=== PATIENT | male | born 1950 | race Caucasian/White ===

== ENCOUNTER 2022-06-27 10:19 | Inpatient (IN) | payer MEDICARE ==
[~2022-06-27] VITALS: Ht 188 cm; Wt 95.9 kg
[2022-06-27 11:16] LABS: BASO % 0.5 % (0.0-1.0); EOS # 0.1 10^3/uL (0.0-0.5); EOS % 1.3 % (0.0-3.0); HEMATOCRIT 45.4 % (42.0-52.0); HEMOGLOBIN 14.4 g/dl (13.5-17.5); LYMPH # 1.4 10^3/uL (1.5-5.0); LYMPH % 16.2 % (24.0-44.0); MEAN CORPUSCULAR HEMOGLOBIN 27.4 pg (27.0-33.0); MEAN CORPUSCULAR HGB CONC 31.7 g/dl (32.0-36.5); MEAN CORPUSCULAR VOLUME 86.3 fl (80.0-96.0); MONO # 0.8 10^3/uL (0.0-0.8); MONO % 9.1 % (2.0-8.0); NEUTROPHILS # 6.3 10^3/uL (1.5-8.5); NEUTROPHILS % 72.4 % (36.0-66.0); PLATELET COUNT, AUTOMATED 546 10^3/uL (150-450); RED BLOOD COUNT 5.26 10^6/uL (4.30-6.10); WHITE BLOOD COUNT 8.6 10^3/uL (4.0-10.0)
[2022-06-27 11:17] LABS: INR 1.02; PROTHROMBIN TIME 13.6 SECONDS (12.5-14.5)
[2022-06-27 11:18] LABS: PARTIAL THROMBOPLASTIN TIME 26.1 SECONDS (24.8-34.2)
[2022-06-27 11:23] LABS: ERYTHROCYTE SEDIMENTATION RATE 96 mm/hr (0-20)
[2022-06-27 11:31] LABS: LIPASE 26 U/L (12-53)
[2022-06-27 11:33] LABS: ALBUMIN 2.8 G/DL (3.2-5.2); ALKALINE PHOSPHATASE 69 U/L (46-116); ALT/SGPT 14 U/L (7.0-40); AST/SGOT 18 U/L (<34); BILIRUBIN,DIRECT 0.3 MG/DL (<0.4); BILIRUBIN,TOTAL 0.8 MG/DL (0.3-1.2); BLOOD UREA NITROGEN 18 MG/DL (9-23); CALCIUM LEVEL 10.5 MG/DL (8.3-10.6); CARBON DIOXIDE LEVEL 29 MMOL/L (20-31); CHLORIDE LEVEL 102 MMOL/L (98-107); CK-MB VALUE MASS 1.2 NG/ML (<3.6); CPK CREATINE PHOSPHOKINASE 156 U/L (46-171); CREATININE FOR GFR 0.71 MG/DL (0.70-1.30); GLOMERULAR FILTRATION RATE > 60.0 (>42); GLUCOSE, FASTING 130 MG/DL (74-106); MB/CK RELATIVE INDEX 0.76 (< OR =4); POTASSIUM SERUM 4.3 MMOL/L (3.5-5.1); SODIUM LEVEL 139 MMOL/L (136-145)
[2022-06-27 11:35] LABS: FREE T4 1.12 NG/DL (0.89-1.76); THYROID STIMULATING HORMONE 1.563 uIU/ML (0.55-4.78)
[2022-06-27 11:38] LABS: RSV AMPLIFICATION NEGATIVE (NEGATIVE)
[2022-06-27] MEDS: METOPROLOL 5 MG/5 ML VIAL IV SCH ×3 (12:12→12:33)
[2022-06-27] MEDS ORDERED: METOPROLOL TART 50 MG TAB PO ONE (12:45)
[2022-06-27] MEDS ORDERED: HOME MED LIST COMPLETE! XX SCH (14:00)
[2022-06-27 14:18] LABS: CK-MB VALUE MASS 1.3 NG/ML (<3.6); MB/CK RELATIVE INDEX 0.86 (< OR =4)
[2022-06-27] MEDS ORDERED: oxyCODONE 5MG TAB PO PRN (15:50)
[2022-06-27] MEDS ORDERED: MORPHINE 2 MG/ML 1ML VIAL IV PRN (15:50)
[2022-06-27] MEDS ORDERED: LEVALBUTEROL 1.25MG 0.5ML CONCENTRATE NEB INH PRN (15:55)
[2022-06-27] MEDS: METOPROLOL TART 25 MG TABLET PO SCH ×2 (18:13→23:24)
[2022-06-27 22:45] VITALS: BP 141/75
[2022-06-27] MEDS: DOCUSATE SODIUM 100MG CAPSULE PO SCH (23:22)
[2022-06-27] MEDS: HEPARIN SOD (PORCINE) 5000UNITS/ML 1ML VIAL/SYRINGE SC SCH (23:22)
[2022-06-28] VITALS (20 sets, daily range): BP systolic 105–123; BP diastolic 63–78; O2SAT 92–96
[2022-06-28 05:12] LABS: HEMOGLOBIN 13.4 g/dl (13.5-17.5); MEAN CORPUSCULAR HEMOGLOBIN 27.5 pg (27.0-33.0); MEAN CORPUSCULAR HGB CONC 31.2 g/dl (32.0-36.5); MEAN CORPUSCULAR VOLUME 88.3 fl (80.0-96.0); PLATELET COUNT, AUTOMATED 466 10^3/uL (150-450); RED BLOOD COUNT 4.87 10^6/uL (4.30-6.10); WHITE BLOOD COUNT 8.1 10^3/uL (4.0-10.0)
[2022-06-28] MEDS: METOPROLOL TART 25 MG TABLET PO SCH (05:12)
[2022-06-28 06:40] LABS: BLOOD UREA NITROGEN 26 MG/DL (9-23); CALCIUM LEVEL 10.4 MG/DL (8.3-10.6); CARBON DIOXIDE LEVEL 34 MMOL/L (20-31); CHLORIDE LEVEL 102 MMOL/L (98-107); CREATININE FOR GFR 0.89 MG/DL (0.70-1.30); GLOMERULAR FILTRATION RATE > 60.0 (>42); GLUCOSE, FASTING 105 MG/DL (74-106); POTASSIUM SERUM 5.2 MMOL/L (3.5-5.1); SODIUM LEVEL 140 MMOL/L (136-145)
[2022-06-28] MEDS: DOCUSATE SODIUM 100MG CAPSULE PO SCH ×2 (10:30→20:28)
[2022-06-28] MEDS: HEPARIN SOD (PORCINE) 5000UNITS/ML 1ML VIAL/SYRINGE SC SCH ×2 (10:50→20:27)
[2022-06-28] MEDS: METOPROLOL TART 12.5 MG PER 1/2 TAB PO SCH ×3 (11:58→23:44)
[2022-06-28] MEDS ORDERED: TRANEXAMIC ACID 100 MG/ML 10ML VIAL As Ordered ONE (12:11)
[2022-06-28] MEDS ORDERED: PHENYLephrine 500MCG 5ML (100MCG/ML) SYRINGE As Ordered ONE (13:14)
[2022-06-28] MEDS ORDERED: propofoL 200 MG/20 ML VIAL As Ordered ONE ×2 (13:14→13:35)
[2022-06-28] MEDS ORDERED: MIDAZOLAM INJ 2MG/2ML VIAL (J2250 PER 1MG) As Ordered ONE (13:14)
[2022-06-28] MEDS ORDERED: fentaNYL 100 MCG/2 ML INJECTION As Ordered ONE (13:14)
[2022-06-28] MEDS ORDERED: ceFAZolin 2 GM/D5W 50 ML IV BAG As Ordered ONE (13:16)
[2022-06-28] MEDS ORDERED: ROPIVA 125MG/EPINEPH 0.25MG/CLONID 40MCG/KETOR 15MG IN NS 50ML SYRINGE PA ONE (14:00)
[2022-06-28] MEDS ORDERED: SENNA 8.6 MG TAB (SENOKOT) PO PRN (14:55)
[2022-06-28] MEDS ORDERED: oxyCODONE 5MG TAB PO PRN ×2 (14:55)
[2022-06-28] MEDS ORDERED: ONDANSETRON 4MG 2ML VIAL IV PRN (14:55)
[2022-06-28] MEDS ORDERED: LR 1,000 ML IV SCH (14:55)
[2022-06-28] MEDS: FERROUS SULFATE 325MG TAB PO SCH (17:37)
[2022-06-28] MEDS: ACETAMINOPHEN TAB 650MG DOSE (2X325MG) PO SCH ×2 (17:37→23:45)
[2022-06-28] MEDS: ASCORBIC ACID 500 MG TAB PO SCH (17:38)
[2022-06-28] MEDS: ASPIRIN 81MG ENTERIC TABLET PO SCH (20:28)
[2022-06-28] MEDS: ceFAZolin SOD 2 GM in IV 1 EA IV SCH (20:28)
[2022-06-28] MEDS: NAPROXEN 250 MG TAB PO SCH (20:28)
[2022-06-29] VITALS (11 sets, daily range): BP systolic 102–115; BP diastolic 60–70; O2SAT 94–96
[2022-06-29 05:34] LABS: HEMATOCRIT 40.1 % (42.0-52.0); HEMOGLOBIN 12.5 g/dl (13.5-17.5); MEAN CORPUSCULAR HEMOGLOBIN 27.8 pg (27.0-33.0); MEAN CORPUSCULAR HGB CONC 31.2 g/dl (32.0-36.5); MEAN CORPUSCULAR VOLUME 89.1 fl (80.0-96.0); PLATELET COUNT, AUTOMATED 371 10^3/uL (150-450); WHITE BLOOD COUNT 7.8 10^3/uL (4.0-10.0)
[2022-06-29] MEDS: ceFAZolin SOD 2 GM in IV 1 EA IV SCH (05:34)
[2022-06-29] MEDS: ACETAMINOPHEN TAB 650MG DOSE (2X325MG) PO SCH ×4 (05:34→23:09)
[2022-06-29] MEDS: METOPROLOL TART 12.5 MG PER 1/2 TAB PO SCH (05:35)
[2022-06-29 05:54] LABS: ALBUMIN 2.8 G/DL (3.2-5.2); ALKALINE PHOSPHATASE 62 U/L (46-116); ALT/SGPT 14 U/L (7.0-40); AST/SGOT 28 U/L (<34); BILIRUBIN,TOTAL 0.8 MG/DL (0.3-1.2); BLOOD UREA NITROGEN 21 MG/DL (9-23); CALCIUM LEVEL 9.8 MG/DL (8.3-10.6); CARBON DIOXIDE LEVEL 30 MMOL/L (20-31); CHLORIDE LEVEL 101 MMOL/L (98-107); CREATININE FOR GFR 0.76 MG/DL (0.70-1.30); GLOMERULAR FILTRATION RATE > 60.0 (>42); GLUCOSE, FASTING 99 MG/DL (74-106); POTASSIUM SERUM 4.5 MMOL/L (3.5-5.1); SODIUM LEVEL 138 MMOL/L (136-145); TOTAL PROTEIN 6.3 G/DL (5.7-8.2)
[2022-06-29] MEDS: ASCORBIC ACID 500 MG TAB PO SCH (10:04)
[2022-06-29] MEDS: DOCUSATE SODIUM 100MG CAPSULE PO SCH ×2 (10:04→20:07)
[2022-06-29] MEDS: ASPIRIN 81MG ENTERIC TABLET PO SCH ×2 (10:04→20:08)
[2022-06-29] MEDS: SENNA 8.6 MG TAB (SENOKOT) PO SCH (10:04)
[2022-06-29] MEDS: NAPROXEN 250 MG TAB PO SCH ×2 (10:04→20:08)
[2022-06-29] MEDS: FERROUS SULFATE 325MG TAB PO SCH (10:04)
[2022-06-30 04:00] VITALS: BP 120/98
[2022-06-30] MEDS: ACETAMINOPHEN TAB 650MG DOSE (2X325MG) PO SCH ×3 (06:04→17:36)
[2022-06-30 06:44] LABS: BASO % 0.3 % (0.0-1.0); EOS # 0.4 10^3/uL (0.0-0.5); EOS % 5.6 % (0.0-3.0); HEMATOCRIT 38.8 % (42.0-52.0); HEMOGLOBIN 12.3 g/dl (13.5-17.5); LYMPH # 1.5 10^3/uL (1.5-5.0); MEAN CORPUSCULAR HEMOGLOBIN 27.7 pg (27.0-33.0); MEAN CORPUSCULAR HGB CONC 31.7 g/dl (32.0-36.5); MEAN CORPUSCULAR VOLUME 87.4 fl (80.0-96.0); MONO # 0.9 10^3/uL (0.0-0.8); MONO % 11.9 % (2.0-8.0); NEUTROPHILS # 4.4 10^3/uL (1.5-8.5); NEUTROPHILS % 60.8 % (36.0-66.0); PLATELET COUNT, AUTOMATED 344 10^3/uL (150-450); RED BLOOD COUNT 4.44 10^6/uL (4.30-6.10); WHITE BLOOD COUNT 7.2 10^3/uL (4.0-10.0)
[2022-06-30 07:24] LABS: ALBUMIN 2.5 G/DL (3.2-5.2); ALKALINE PHOSPHATASE 60 U/L (46-116); ALT/SGPT 9 U/L (7.0-40); AST/SGOT 43 U/L (<34); BILIRUBIN,TOTAL 0.9 MG/DL (0.3-1.2); BLOOD UREA NITROGEN 17 MG/DL (9-23); CALCIUM LEVEL 9.4 MG/DL (8.3-10.6); CARBON DIOXIDE LEVEL 34 MMOL/L (20-31); CHLORIDE LEVEL 100 MMOL/L (98-107); CREATININE FOR GFR 0.73 MG/DL (0.70-1.30); GLOMERULAR FILTRATION RATE > 60.0 (>42); GLUCOSE, FASTING 100 MG/DL (74-106); POTASSIUM SERUM 4.7 MMOL/L (3.5-5.1); SODIUM LEVEL 136 MMOL/L (136-145); TOTAL PROTEIN 5.9 G/DL (5.7-8.2)
[2022-06-30 08:00] VITALS: BP 113/70
[2022-06-30] MEDS: SENNA 8.6 MG TAB (SENOKOT) PO SCH (09:16)
[2022-06-30] MEDS: NAPROXEN 250 MG TAB PO SCH ×2 (09:16→20:06)
[2022-06-30] MEDS: FERROUS SULFATE 325MG TAB PO SCH (09:16)
[2022-06-30] MEDS: DOCUSATE SODIUM 100MG CAPSULE PO SCH ×2 (09:17→20:06)
[2022-06-30] MEDS: ASCORBIC ACID 500 MG TAB PO SCH (09:17)
[2022-06-30] MEDS: ASPIRIN 81MG ENTERIC TABLET PO SCH (09:17)
[2022-06-30 16:00] VITALS: BP 124/75
[2022-06-30] MEDS: RIVAROXABAN 20MG TAB (XARELTO) PO SCH (17:36)
[2022-06-30 20:00] VITALS: BP 112/72
[2022-07-01] MEDS: ACETAMINOPHEN TAB 650MG DOSE (2X325MG) PO SCH ×4 (00:23→17:26)
[2022-07-01 03:43] VITALS: BP 126/83
[2022-07-01 08:00] VITALS: BP 146/88
[2022-07-01] MEDS: ASCORBIC ACID 500 MG TAB PO SCH (08:40)
[2022-07-01] MEDS: FERROUS SULFATE 325MG TAB PO SCH (08:40)
[2022-07-01] MEDS: NAPROXEN 250 MG TAB PO SCH ×2 (08:41→20:34)
[2022-07-01] MEDS: DOCUSATE SODIUM 100MG CAPSULE PO SCH ×2 (08:41→19:58)
[2022-07-01] MEDS: SENNA 8.6 MG TAB (SENOKOT) PO SCH (08:41)
[2022-07-01 15:00] VITALS: BP 123/75
[2022-07-01] MEDS: RIVAROXABAN 20MG TAB (XARELTO) PO SCH (17:26)
[2022-07-01 20:14] VITALS: BP 146/68
[2022-07-02 04:00] VITALS: BP 120/79
[2022-07-02] MEDS: ACETAMINOPHEN TAB 650MG DOSE (2X325MG) PO SCH ×3 (06:00→11:34)
[2022-07-02] MEDS: DOCUSATE SODIUM 100MG CAPSULE PO SCH (08:20)
[2022-07-02] MEDS: SENNA 8.6 MG TAB (SENOKOT) PO SCH (08:20)
[2022-07-02] MEDS: FERROUS SULFATE 325MG TAB PO SCH (08:20)
[2022-07-02] MEDS: ASCORBIC ACID 500 MG TAB PO SCH (08:20)
[2022-07-02] MEDS: NAPROXEN 250 MG TAB PO SCH (08:21)
[2022-07-02 08:23] VITALS: BP 128/70
[2022-07-02] MEDS ORDERED: METOPROLOL TART 25 MG TABLET PO SCH (09:00)
[2022-07-02 09:35] VITALS: BP 130/71
[2022-07-02] MEDS ORDERED: COLA100C5 PO (10:01)
[2022-07-02] MEDS ORDERED: FERR1TAB8 PO (10:01)
[2022-07-02] MEDS ORDERED: ACET1TAB55 PO (10:01)
[2022-07-02] MEDS ORDERED: ASCO50TA PO (10:01)
[2022-07-02] MEDS ORDERED: METO1TAB87 PO (10:01)
[2022-07-02] MEDS ORDERED: SENO8.6T10 PO (10:10)
[2022-07-02] MEDS ORDERED: XARE20TA PO (10:10)
[2022-07-02] MEDS ORDERED: MILK400S12 PO (10:10)
[2022-07-02] MEDS ORDERED: MIRA3350 PO (10:10)
[2022-07-02] MEDS ORDERED: NAPR-849 PO (10:10)
[2022-07-02] MEDS ORDERED: OXYC-517 PO (10:10)
[2022-07-02 11:26] VITALS: BP 112/62
== END 2022-07-02 13:52 | DRG 522 ==
LOC: EDBD 10:19 → M ED 10:19 → M ED INP 14:01 → M PCU 22:36
PROVIDERS: ADMIT Internal Medicine Nephrology; ATTEND General Practice
PROC: 0SRR0JA Replacement of Right Hip Joint, Femoral Surface with Synthetic Substitute, Uncemented, Open Approach (ICD-10-PCS; principal; 2022-06-28 15:00)
DX: S72.051A Unspecified fracture of head of right femur, initial encounter for closed fracture (principal); Z68.41 Body mass index [BMI] 40.0-44.9, adult; I31.39 Other pericardial effusion (noninflammatory); I48.0 Paroxysmal atrial fibrillation; E66.01 Morbid (severe) obesity due to excess calories; M95.4 Acquired deformity of chest and rib; Z87.891 Personal history of nicotine dependence; Z79.899 Other long term (current) drug therapy; W18.30XA Fall on same level, unspecified, initial encounter; Y92.009 Unspecified place in unspecified non-institutional (private) residence as the place of occurrence of the external cause

== ENCOUNTER 2022-07-02 10:10 | Inpatient (IN) | payer MEDICARE ==
[~2022-07-02] VITALS: Ht 188 cm; Wt 94.4 kg
[~2022-07-02 10:10] MED LIST: ACET1TAB55 PO; ASCO50TA PO; COLA100C5 PO; FERR1TAB8 PO; METO1TAB87 PO; MILK400S12 PO; MIRA3350 PO; NAPR-849 PO; OXYC-517 PO; SENO8.6T10 PO; XARE20TA PO
[2022-07-02 14:00] VITALS: BP 128/73
[2022-07-02] MEDS ORDERED: ONDANSETRON 4MG TAB PO PRN (14:50)
[2022-07-02] MEDS ORDERED: oxyCODONE 5MG TAB PO PRN (14:50)
[2022-07-02] MEDS ORDERED: HOME MED LIST COMPLETE! XX SCH (15:05)
[2022-07-02] MEDS: METOPROLOL TART 25 MG TABLET PO SCH ×2 (15:36→21:17)
[2022-07-02] MEDS: ACETAMINOPHEN 500 MG TAB PO SCH ×2 (15:37→20:29)
[2022-07-02] MEDS: RIVAROXABAN 20MG TAB (XARELTO) PO SCH (18:37)
[2022-07-02] MEDS: COMBIVENT RESPIMAT 100-20MCG INHALER 4GM INH SCH (19:02)
[2022-07-02 20:19] VITALS: BP 121/82
[2022-07-02] MEDS: DOCUSATE SODIUM 100MG CAPSULE PO SCH (20:29)
[2022-07-02] MEDS: SENNA 8.6 MG TAB (SENOKOT) PO SCH (20:29)
[2022-07-03 05:16] VITALS: BP 136/81
[2022-07-03] MEDS: METOPROLOL TART 25 MG TABLET PO SCH ×3 (05:41→21:02)
[2022-07-03 06:21] LABS: BASO % 0.5 % (0.0-1.0); EOS # 0.4 10^3/uL (0.0-0.5); EOS % 6.8 % (0.0-3.0); HEMATOCRIT 40.5 % (42.0-52.0); HEMOGLOBIN 12.7 g/dl (13.5-17.5); LYMPH # 1.6 10^3/uL (1.5-5.0); LYMPH % 26.5 % (24.0-44.0); MEAN CORPUSCULAR HEMOGLOBIN 27.7 pg (27.0-33.0); MEAN CORPUSCULAR HGB CONC 31.4 g/dl (32.0-36.5); MEAN CORPUSCULAR VOLUME 88.4 fl (80.0-96.0); MONO # 0.6 10^3/uL (0.0-0.8); MONO % 9.5 % (2.0-8.0); NEUTROPHILS # 3.3 10^3/uL (1.5-8.5); NEUTROPHILS % 56.4 % (36.0-66.0); PLATELET COUNT, AUTOMATED 389 10^3/uL (150-450); RED BLOOD COUNT 4.58 10^6/uL (4.30-6.10); WHITE BLOOD COUNT 5.9 10^3/uL (4.0-10.0)
[2022-07-03 06:53] LABS: ALBUMIN 2.5 G/DL (3.2-5.2); ALKALINE PHOSPHATASE 62 U/L (46-116); ALT/SGPT 19 U/L (7.0-40); AST/SGOT 39 U/L (<34); BILIRUBIN,TOTAL 0.7 MG/DL (0.3-1.2); BLOOD UREA NITROGEN 19 MG/DL (9-23); CALCIUM LEVEL 10.1 MG/DL (8.3-10.6); CARBON DIOXIDE LEVEL 34 MMOL/L (20-31); CHLORIDE LEVEL 101 MMOL/L (98-107); CREATININE FOR GFR 0.73 MG/DL (0.70-1.30); GLOMERULAR FILTRATION RATE > 60.0 (>42); GLUCOSE, FASTING 93 MG/DL (74-106); POTASSIUM SERUM 4.6 MMOL/L (3.5-5.1); SODIUM LEVEL 139 MMOL/L (136-145); TOTAL PROTEIN 6.1 G/DL (5.7-8.2)
[2022-07-03] MEDS: COMBIVENT RESPIMAT 100-20MCG INHALER 4GM INH SCH ×2 (08:00→19:22)
[2022-07-03] MEDS: FERROUS SULFATE 325MG TAB PO SCH (08:54)
[2022-07-03] MEDS: PANTOPRAZOLE 40MG TAB (PROTONIX) PO SCH (08:54)
[2022-07-03] MEDS: ASCORBIC ACID 500 MG TAB PO SCH (08:54)
[2022-07-03] MEDS: BISACODYL 5MG TAB PO SCH (08:54)
[2022-07-03] MEDS: DOCUSATE SODIUM 100MG CAPSULE PO SCH ×2 (08:54→21:01)
[2022-07-03] MEDS: ACETAMINOPHEN 500 MG TAB PO SCH ×3 (08:54→21:01)
[2022-07-03 14:00] VITALS: BP 128/62
[2022-07-03] MEDS: RIVAROXABAN 20MG TAB (XARELTO) PO SCH (18:07)
[2022-07-03 20:00] VITALS: BP 137/73
[2022-07-03] MEDS: SENNA 8.6 MG TAB (SENOKOT) PO SCH (21:01)
[2022-07-04 05:00] VITALS: BP 138/80
[2022-07-04] MEDS: METOPROLOL TART 25 MG TABLET PO SCH ×3 (05:04→21:15)
[2022-07-04] MEDS: ASCORBIC ACID 500 MG TAB PO SCH (07:25)
[2022-07-04] MEDS: PANTOPRAZOLE 40MG TAB (PROTONIX) PO SCH (07:25)
[2022-07-04] MEDS: ACETAMINOPHEN 500 MG TAB PO SCH ×3 (07:25→21:15)
[2022-07-04] MEDS: BISACODYL 5MG TAB PO SCH (07:25)
[2022-07-04] MEDS: FERROUS SULFATE 325MG TAB PO SCH (07:25)
[2022-07-04] MEDS: COMBIVENT RESPIMAT 100-20MCG INHALER 4GM INH SCH ×3 (07:54→19:32)
[2022-07-04] MEDS: TIOTROPIUM INHALER/CAPSULE (SPIRIVA) INH SCH (07:54)
[2022-07-04] MEDS: DOCUSATE SODIUM 100MG CAPSULE PO SCH ×2 (09:00→21:00)
[2022-07-04 14:00] VITALS: BP 143/72
[2022-07-04] MEDS: RIVAROXABAN 20MG TAB (XARELTO) PO SCH (17:19)
[2022-07-04 20:00] VITALS: BP 102/56
[2022-07-04] MEDS: SENNA 8.6 MG TAB (SENOKOT) PO SCH (21:00)
[2022-07-05] MEDS: METOPROLOL TART 25 MG TABLET PO SCH ×3 (05:19→21:09)
[2022-07-05 06:00] VITALS: BP 120/72
[2022-07-05 06:06] LABS: BASO % 0.7 % (0.0-1.0); EOS # 0.4 10^3/uL (0.0-0.5); EOS % 6.8 % (0.0-3.0); HEMATOCRIT 37.8 % (42.0-52.0); LYMPH # 1.6 10^3/uL (1.5-5.0); MEAN CORPUSCULAR HEMOGLOBIN 27.8 pg (27.0-33.0); MEAN CORPUSCULAR HGB CONC 31.7 g/dl (32.0-36.5); MEAN CORPUSCULAR VOLUME 87.5 fl (80.0-96.0); MONO # 0.6 10^3/uL (0.0-0.8); MONO % 10.8 % (2.0-8.0); NEUTROPHILS # 2.8 10^3/uL (1.5-8.5); NEUTROPHILS % 52.1 % (36.0-66.0); PLATELET COUNT, AUTOMATED 358 10^3/uL (150-450); RED BLOOD COUNT 4.32 10^6/uL (4.30-6.10); WHITE BLOOD COUNT 5.5 10^3/uL (4.0-10.0)
[2022-07-05 06:30] LABS: BLOOD UREA NITROGEN 20 MG/DL (9-23); CALCIUM LEVEL 9.9 MG/DL (8.3-10.6); CARBON DIOXIDE LEVEL 34 MMOL/L (20-31); CHLORIDE LEVEL 102 MMOL/L (98-107); CREATININE FOR GFR 0.78 MG/DL (0.70-1.30); GLOMERULAR FILTRATION RATE > 60.0 (>42); GLUCOSE, FASTING 90 MG/DL (74-106); POTASSIUM SERUM 4.4 MMOL/L (3.5-5.1); SODIUM LEVEL 140 MMOL/L (136-145)
[2022-07-05] MEDS: COMBIVENT RESPIMAT 100-20MCG INHALER 4GM INH SCH ×3 (07:33→21:03)
[2022-07-05] MEDS: TIOTROPIUM INHALER/CAPSULE (SPIRIVA) INH SCH (07:34)
[2022-07-05] MEDS: ACETAMINOPHEN 500 MG TAB PO SCH ×3 (08:07→20:41)
[2022-07-05] MEDS: DOCUSATE SODIUM 100MG CAPSULE PO SCH ×2 (08:07→20:38)
[2022-07-05] MEDS: BISACODYL 5MG TAB PO SCH (08:07)
[2022-07-05] MEDS: PANTOPRAZOLE 40MG TAB (PROTONIX) PO SCH (08:07)
[2022-07-05] MEDS: ASCORBIC ACID 500 MG TAB PO SCH (08:07)
[2022-07-05] MEDS: FERROUS SULFATE 325MG TAB PO SCH (08:07)
[2022-07-05 13:37] VITALS: BP 107/60
[2022-07-05 13:52] VITALS: BP 107/60
[2022-07-05] MEDS: RIVAROXABAN 20MG TAB (XARELTO) PO SCH (17:10)
[2022-07-05 20:00] VITALS: BP 104/72
[2022-07-05] MEDS: SENNA 8.6 MG TAB (SENOKOT) PO SCH (20:38)
[2022-07-06 06:00] VITALS: BP 102/72
[2022-07-06] MEDS: METOPROLOL TART 25 MG TABLET PO SCH ×3 (06:00→21:21)
[2022-07-06] MEDS: COMBIVENT RESPIMAT 100-20MCG INHALER 4GM INH SCH ×3 (07:26→19:57)
[2022-07-06] MEDS: TIOTROPIUM INHALER/CAPSULE (SPIRIVA) INH SCH (07:26)
[2022-07-06] MEDS: DOCUSATE SODIUM 100MG CAPSULE PO SCH ×2 (08:10→20:37)
[2022-07-06] MEDS: BISACODYL 5MG TAB PO SCH (08:10)
[2022-07-06] MEDS: PANTOPRAZOLE 40MG TAB (PROTONIX) PO SCH (08:10)
[2022-07-06] MEDS: ASCORBIC ACID 500 MG TAB PO SCH (08:10)
[2022-07-06] MEDS: FERROUS SULFATE 325MG TAB PO SCH (08:10)
[2022-07-06] MEDS: ACETAMINOPHEN 500 MG TAB PO SCH ×3 (08:10→20:36)
[2022-07-06 14:00] VITALS: BP 131/67
[2022-07-06] MEDS: RIVAROXABAN 20MG TAB (XARELTO) PO SCH (17:47)
[2022-07-06 20:00] VITALS: BP 97/59
[2022-07-06] MEDS: SENNA 8.6 MG TAB (SENOKOT) PO SCH (20:37)
[2022-07-07 06:00] VITALS: BP 113/67
[2022-07-07] MEDS: METOPROLOL TART 25 MG TABLET PO SCH ×3 (06:19→20:28)
[2022-07-07] MEDS: COMBIVENT RESPIMAT 100-20MCG INHALER 4GM INH SCH ×3 (07:31→19:36)
[2022-07-07] MEDS: TIOTROPIUM INHALER/CAPSULE (SPIRIVA) INH SCH (07:31)
[2022-07-07] MEDS: BISACODYL 5MG TAB PO SCH (07:52)
[2022-07-07] MEDS: DOCUSATE SODIUM 100MG CAPSULE PO SCH ×2 (07:53→20:34)
[2022-07-07] MEDS: PANTOPRAZOLE 40MG TAB (PROTONIX) PO SCH (07:53)
[2022-07-07] MEDS: FERROUS SULFATE 325MG TAB PO SCH (07:53)
[2022-07-07] MEDS: ACETAMINOPHEN 500 MG TAB PO SCH ×3 (07:53→20:32)
[2022-07-07] MEDS: ASCORBIC ACID 500 MG TAB PO SCH (07:53)
[2022-07-07 14:00] VITALS: BP 109/59
[2022-07-07] MEDS: RIVAROXABAN 20MG TAB (XARELTO) PO SCH (17:49)
[2022-07-07 20:00] VITALS: BP 102/58
[2022-07-07] MEDS: SENNA 8.6 MG TAB (SENOKOT) PO SCH (20:34)
[2022-07-08 05:34] VITALS: BP 112/69
[2022-07-08] MEDS: METOPROLOL TART 25 MG TABLET PO SCH ×2 (05:36→14:00)
[2022-07-08 06:47] LABS: BASO % 0.7 % (0.0-1.0); EOS # 0.3 10^3/uL (0.0-0.5); EOS % 4.7 % (0.0-3.0); HEMATOCRIT 40.4 % (42.0-52.0); HEMOGLOBIN 12.7 g/dl (13.5-17.5); LYMPH # 1.4 10^3/uL (1.5-5.0); MEAN CORPUSCULAR HEMOGLOBIN 27.8 pg (27.0-33.0); MEAN CORPUSCULAR HGB CONC 31.4 g/dl (32.0-36.5); MEAN CORPUSCULAR VOLUME 88.4 fl (80.0-96.0); MONO # 0.5 10^3/uL (0.0-0.8); MONO % 9.5 % (2.0-8.0); NEUTROPHILS # 3.3 10^3/uL (1.5-8.5); NEUTROPHILS % 59.6 % (36.0-66.0); PLATELET COUNT, AUTOMATED 385 10^3/uL (150-450); RED BLOOD COUNT 4.57 10^6/uL (4.30-6.10); WHITE BLOOD COUNT 5.6 10^3/uL (4.0-10.0)
[2022-07-08 07:16] LABS: BLOOD UREA NITROGEN 18 MG/DL (9-23); CALCIUM LEVEL 10.1 MG/DL (8.3-10.6); CARBON DIOXIDE LEVEL 31 MMOL/L (20-31); CHLORIDE LEVEL 102 MMOL/L (98-107); CREATININE FOR GFR 0.83 MG/DL (0.70-1.30); GLOMERULAR FILTRATION RATE > 60.0 (>42); GLUCOSE, FASTING 94 MG/DL (74-106); POTASSIUM SERUM 4.4 MMOL/L (3.5-5.1); SODIUM LEVEL 138 MMOL/L (136-145)
[2022-07-08] MEDS ORDERED: COMBAER6 INH (07:23)
[2022-07-08] MEDS ORDERED: TIOT18INH INH (07:23)
[2022-07-08] MEDS ORDERED: METO1TAB87 PO (07:23)
[2022-07-08] MEDS ORDERED: XARE20TA PO (07:23)
[2022-07-08] MEDS: COMBIVENT RESPIMAT 100-20MCG INHALER 4GM INH SCH ×2 (07:36→13:26)
[2022-07-08] MEDS: TIOTROPIUM INHALER/CAPSULE (SPIRIVA) INH SCH (07:37)
[2022-07-08] MEDS: ASCORBIC ACID 500 MG TAB PO SCH (08:19)
[2022-07-08] MEDS: DOCUSATE SODIUM 100MG CAPSULE PO SCH (08:19)
[2022-07-08] MEDS: ACETAMINOPHEN 500 MG TAB PO SCH (08:20)
[2022-07-08] MEDS: BISACODYL 5MG TAB PO SCH (08:20)
[2022-07-08] MEDS: FERROUS SULFATE 325MG TAB PO SCH (08:20)
[2022-07-08] MEDS: PANTOPRAZOLE 40MG TAB (PROTONIX) PO SCH (08:20)
[2022-07-08 14:00] VITALS: BP_SYST 107; BP_SYST 133; BP_DIAS 58; BP_DIAS 69
== END 2022-07-08 15:15 | disposition home or self-care (01) | DRG 560 ==
LOC: M PM&R 13:55
PROVIDERS: ADMIT Physical Medicine & Rehabilitation; ATTEND Physical Medicine & Rehabilitation
DX: S72.001D Fracture of unspecified part of neck of right femur, subsequent encounter for closed fracture with routine healing (principal); I50.32 Chronic diastolic (congestive) heart failure; Z68.41 Body mass index [BMI] 40.0-44.9, adult; J44.9 Chronic obstructive pulmonary disease, unspecified; Z74.09 Other reduced mobility; Z74.1 Need for assistance with personal care; I48.0 Paroxysmal atrial fibrillation; Z96.641 Presence of right artificial hip joint; Z79.01 Long term (current) use of anticoagulants; Z87.891 Personal history of nicotine dependence; Z79.899 Other long term (current) drug therapy; E66.01 Morbid (severe) obesity due to excess calories; R06.09 Other forms of dyspnea

== ENCOUNTER → 2022-07-11 | Outpatient (CLI) | payer MEDICARE ==
[~2022-07-11] MED LIST changes: +COMBAER6 INH; +TIOT18INH INH
== END ==
LOC: M SOG 09:20
PROVIDERS: ATTEND Orthopaedic Surgery Adult Reconstructive Orthopaedic Surgery
DX: M25.551 Pain in right hip (principal)